=== PATIENT | male | born 1980 | race Caucasian/White ===

== ENCOUNTER 2019-02-19 11:26 | Emergency (ER) | payer OTHER ==
[~2019-02-19] VITALS: Ht 180.3 cm; Wt 110.4 kg
[2019-02-19] MEDS ORDERED: KETOROLAC 30 MG/1 ML ONE (12:17)
[2019-02-19] MEDS ORDERED: METHOCARBAMOL 750 MG TABLET ONE (12:17)
--- NOTE | 2019-02-19 12:24 | NUR ---
PT MEDICATED PER ORDERS. AMBULATED TO XR WITH Lexara.
[2019-02-19] MEDS ORDERED: KETOROLAC 30 MG/1 ML IM ONE (12:30)
[2019-02-19] MEDS ORDERED: METHOCARBAMOL 750 MG TABLET PO ONE (12:30)
[2019-02-19 13:09] VITALS: BP 140/67
--- NOTE | 2019-02-19 13:09 | NUR ---
PT REPORTS BACK PAIN/SPASMS IMPROVED AFTER TORADOL/ROBAXIN. D/C INSTRUCTIONS, MEDS & F/U APPT RV'WD WITH PT, HE VERBALIZES UNDERSTANDING. RX GIVEN X2. PT AMBULATED OUT OF ED WITH FAMILY WITHOUT DIFFICULTY.
== END 2019-02-19 13:12 | disposition home or self-care (01) ==
LOC: ED 12:45
DX: S39.012A Strain of muscle, fascia and tendon of lower back, initial encounter (principal); X50.1XXA Overexertion from prolonged static or awkward postures, initial encounter; Y93.89 Activity, other specified; Y92.89 Other specified places as the place of occurrence of the external cause; Y99.8 Other external cause status
CPT/HCPCS: 72110; 96372; 99283; J1885

== ENCOUNTER 2019-03-21 10:52 | Emergency (ER) | payer OTHER ==
[~2019-03-21] VITALS: Ht 180.3 cm; Wt 111.2 kg
[2019-03-21 11:13] VITALS: BP 150/83
[2019-03-21] MEDS ORDERED: LIDOCAINE-MPF 1%, 5ML INFIL ONE (11:30)
--- NOTE | 2019-03-21 11:40 | NUR ---
rectal abscess x2 days, history of the same AFEBRILE, VSS TO PLACE PIV/SEND LABS/OBAIN CT
[2019-03-21] MEDS ORDERED: FLUO20CA8 PO (12:02)
[2019-03-21] MEDS ORDERED: TEST200V3 IM (12:02)
[2019-03-21 12:24] LABS: BASOPHILS # (AUTO) 0.01 x10^3/uL (0-0.1); BASOPHILS % (AUTO) 0 % (0-1); EOSINOPHILS # (AUTO) 0.16 x10^3/uL (0-0.4); EOSINOPHILS % (AUTO) 1 % (1-7); LYMPHOCYTES # (AUTO) 1.43 x10^3/uL (1-3.4); LYMPHOCYTES % (AUTO) 12 % (22-44); MD NO; MEAN CORPUSCULAR HGB CONC 33.3 g/dL (33.2-36.2); MEAN CORPUSCULAR VOLUME 93.1 fL (81-97); MEAN PLATELET VOLUME 8.2 fL (7.4-10.4); MONOCYTES # (AUTO) 1.25 x10^3/uL (0.2-0.8); MONOCYTES % (AUTO) 11 % (2-9); NEUTROPHILS # (AUTO) 8.92 x10^3/uL (1.8-6.8); NEUTROPHILS % (AUTO) 76 % (42-75); PLATELET COUNT 346 x10^3/uL (130-400); RED BLOOD COUNT 5.17 x10^6/uL (4.38-5.82)
--- NOTE | 2019-03-21 12:42 | NUR ---
lab called about pending cmp-test pending
[2019-03-21 12:43] LABS: ALBUMIN 3.8 g/dL (3.4-5.0); ANION GAP 5 mmol/L (5-15); CALCIUM 8.7 mg/dL (8.5-10.1); CHLORIDE 108 mmol/L (98-107); CREATININE 1.24 mg/dL (0.7-1.3)
--- NOTE | 2019-03-21 12:50 | NUR ---
Ct scan called to expedite pending exam. Chief Inspector reports backlog of exam. Parts Identification Technician will continue to monitor
--- NOTE | 2019-03-21 13:30 | NUR ---
Ct scan called (second time). [employer] Architect reports 2 patients ahead
--- NOTE | 2019-03-21 13:50 | NUR ---
RACECAR DRIVER/PROVIDER MADE AWARE OF DELAY IN OBTAINING RADIOLOGY. TO ATTEMPT TO EXPIDITE
--- NOTE | 2019-03-21 14:19 | NUR ---
TO CT SCAN
[2019-03-21] MEDS ORDERED: OMNIPAQUE 350 MG/ML, 100ML BOTTLE ONE (14:27)
[2019-03-21] MEDS ORDERED: LIDOCAINE-MPF 1%, 5ML ONE (15:13)
--- NOTE | 2019-03-21 15:22 | NUR ---
REPORT TO CORTES MADERA
== END 2019-03-21 15:54 | disposition home or self-care (01) ==
LOC: ED 13:20
DX: K61.1 Rectal abscess (principal)
CPT/HCPCS: 36415; 46050; 74177; 80048; 82040; 85025; 99284; Q9967